=== PATIENT | female | born 1995 | race Caucasian/White ===

== ENCOUNTER 2022-04-01 08:00 | Outpatient (CLI) | payer OTHER ==
--- NOTE | 2022-04-01 16:50 | XRAY Report ---
PROCEDURE: Finger(s) LT INDICATIONS: CONTUSION OF LEFT FINGER/INDEX TECHNIQUE: AP hand, 2 views of the second finger(s) acquired. COMPARISON: None FINDINGS: Bones: No fractures or dislocations. No suspicious bony lesions. Soft tissues: No suspicious soft tissue calcifications. IMPRESSION: No acute fracture. No osseous lesion. If symptoms and/or clinical suspicion for pathology continue, f urther assessment with repeat plain films, or advanced imaging (e.g., CT, MRI, or bone scan) is recom mended for further assessment. Reviewed by: Ellen Nagy MD on 04/01/2022 4:49 PM PDT Approved by: Ellen Nagy MD on 04/01/2022 4:49 PM PDT Station ID: [id number]
== END 2022-04-01 23:59 | disposition home or self-care (01) ==
LOC: DI.N 08:00
PROVIDERS: ATTEND Physician Assistant Medical
DX: S60.022A Contusion of left index finger without damage to nail, initial encounter (principal)

== ENCOUNTER 2022-09-07 12:37 | Emergency (ER) | payer OTHER ==
--- NOTE | 2022-09-07 12:59 | ED Physician Documentation ---
PD HPI HEENT - Stated complaint Stated Complaint: NOSE SWELLING/BLEEDING - History obtained from History obtained from: Patient - Additional information Additional information: 27-year-old female presents with pain over the bridge of her nose as well as epistaxis after work-related injury. 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 She had epistaxis that she states lasted for about 10 to 15 minutes, primarily on the left side though possibly some on the right and this was s topped with gentle pressure. She has pain and swelling over the bridge of her nose and is concerned for fracture. She denies any loss of consciousness, no other injuries. She is not on any Anticoagulation. Review of Systems Constitutional: reports: Reviewed and negative Nose: reports: Epistaxis Throat: reports: Reviewed and negative Cardiac: reports: Reviewed and negative Respiratory: reports: Reviewed and negative GI: reports: Reviewed and negative Skin: reports: Reviewed and negative Musculoskeletal: reports: Reviewed and negative Neurologic: reports: Reviewed and negative PD PAST MEDICAL HISTORY - Past Medical History Past Medical History: No - Present Medications Home Medications: Ambulatory Orders Medication Instructions Recorded Confirmed Sertraline HCl 100 mg PO DAILY 09/07/22 09/07/22 traZODone [Desyrel] 50 - 100 mg PO HS PRN 09/07/22 09/07/22 - Allergies Allergies/Adverse Reactions: Allergies Allergy/AdvReac Type Severity Reaction Status Date / Time No Known Drug Allergies Allergy Verified 09/07/22 13:08 PD ED PE NORMAL - Vitals Vital signs reviewed: Yes - General General: Alert and oriented X 3, No acute distress, Well developed/nourished - HEENT HEENT: PERRL, EOMI, Moist mucous membranes, Pharynx benign, Other (Tenderness and mild swelling over the bridge of the nose, no obvious deformity. No active bleeding however there is hyperemic mucosa in both nares, no septal hematoma and septum appears midline.) - Neck Neck: No bony TTP - Cardiac Cardiac: RRR, No murmur - Respiratory Respiratory: No respiratory distress, Clear bilaterally - Derm Derm: Normal color, Warm and dry - Neuro Neuro: Alert and oriented X 3 Eye Opening: Spontaneous Motor: Obeys Commands Verbal: Oriented GCS Score: 15 - Psych Psych: Normal mood, Normal affect Results - Vitals Vitals: Vital Signs - 24 hr 09/07/22 13:05 Temperature 36.8 C Heart Rate 69 Respiratory 16 Rate Blood Pressure 152/58 H O2 Saturation 100 Oxygen O2 Source Room air PD Medical Decision Making - ED course Complexity details: reviewed results, d/w patient ED course: 27-year-old female presents with epistaxis and pain over the bridge of her nose after 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 She is no longer bleeding on arrival here and there is no signs of septal deviation or septal hematoma on exam. She does have some mild bruising across the bridge of her nose. I discussed with patient that x-rays would give us a limited view and she elected to go for a CT scan to evaluate for possible fracture. Report is pending but I do not see any obvious displaced fractures on her CT scan. I discussed supportive measures with patient and she may return to work per regular schedule tomorrow. Work-related forms were filled out and returned to the patient. Departure - Departure Disposition: 01 Home, Self Care Condition: Good Instructions: ED Contusion Nasal Vs Fx No X Ray Comments: You presented with nose swelling and a bloody nose after accidentally getting struck by a child's head. I do not see any obvious fractures on the CT scan however the final report is pending, but there do not appear to be any non displaced fractures. I recommend cool compress, ibuprofen or Tylenol for pain and to hold the nose tightly for 10 to 15 minutes if it starts to rebleed. Most Nondisplaced fractures of the nose do not require any surgical intervention.
[2022-09-07 13:08] VITALS: BP 152/58
--- NOTE | 2022-09-07 15:51 | CT Report ---
PROCEDURE: Maxillofacial CT without contrast INDICATIONS: work-injury, facial trauma TECHNIQUE: Noncontrast 1.5 mm thick axial images acquired from the mandible through the frontal sinuses, with co shelli and sagittal reformatting. For radiation dose reduction, the following was used: automated ex posure control, adjustment of mA and/or kV according to patient size. COMPARISON: None. FINDINGS: Image quality: Excellent. Bones and teeth: Nondisplaced nasal bone fracture noted on the left. Orbital taylor are intact. Sinu s taylor show no fracture or deformity. Visualized portions of the mandible demonstrate no fractures or subluxation. Zygomatic arches are intact. Pterygoid plates are intact. Visualized portions of t he skull base and auditory canals are intact. Sinuses: Paranasal sinuses are aerated, without fluid levels, mucosal thickening, or mucoceles. Mas toid air cells are aerated. Soft tissues: No edema, masses, or fluid collections. No enlarged lymph nodes. No soft tissue lace rations or debris. Vascular: Visualized vascular structures appear normal in the absence of contrast. Bony vascular fo ramina and canals are intact. IMPRESSION: Nondisplaced nasal bone fracture. No radiopaque foreign bodies. Reviewed by: Bebeto Valera MD on 09/07/2022 2:49 PM [facility] Approved by: Bebeto Valera MD on 09/07/2022 2:49 PM [facility] Station ID: [id number]
== END 2022-09-07 15:09 | disposition home or self-care (01) ==
LOC: ED 12:37
DX: S02.2XXA Fracture of nasal bones, initial encounter for closed fracture (principal); W50.0XXA Accidental hit or strike by another person, initial encounter; Y99.0 Civilian activity done for income or pay
CPT/HCPCS: 99283; 99284